=== PATIENT | female | born 1945 | race Caucasian/White ===

== ENCOUNTER → 2018-07-20 | Outpatient (CLI) | payer MEDICARE, BC ==
[~2018-07-20] MED LIST: ACET-1966 PO; ASCO-180 PO; ASPI-1441 PO; ASPI-1471 PO; ATOR20TA22 PO; CALC600T63 PO; CALC600T71 PO; CEPH500C24 PO; CHON400C PO; CIPR-344 PO; ENAL-242 PO; ENAL20TA99 PO; EST3 PO; ESTR0.5T18 PO; ESTR0.62 PO; FISH OIL1 CAP PO; FISH1CAP15 PO; FLAX100027 PO; FLEXATINE PO; FLUO20TA2 PO; FLUT16SP19 NS; GABA-547 PO; GLUC-307 PO; GLUCOSAMINE 1,1 EACH PO; HYDR-2966 PO; HYDR12.561 PO; LEVO150T72 PO; LEVO25TA61 PO; METO25TA23 PO; METXL50 PO; NIA500 PO; OME20PT FT; OMEP-114 PO; PHEN200T32 PO; ROSU20TA23 PO; SIMV-49 PO; SIMV-54 PO; SULF-283 PO; TRIA-102 PO; [UNRECOGNIZED DRUG - CODE] SL
--- NOTE | 2018-07-20 15:25 | RADIOLOGY IMAGING REPORT ---
FACILITY: [facility] - [place] PATIENT NAME: ROSY JOLLEY : [id number] MR: [id number] V: [id number] EXAM DATE: [id number] ORDERING PHYSICIAN: MINA PARRY TECHNOLOGIST: Heather Joshi PROCEDURE:BILATERAL DIGITAL SCREENING MAMMOGRAM WITH CAD ASSISTED INTERPRETATION & 3D TOMOSYNTHESIS COMPARISON:Prior mammograms 07/14/2017. INDICATIONS:SCREENING FINDINGS: Breast tissue is predominantly fatty. There is no suspicious mass, calcification, or architectural distortion. DIAGNOSTIC CATEGORY 1--NEGATIVE. RECOMMENDATIONS: ROUTINE MAMMOGRAM AND CLINICAL EVALUATION. IMPRESSION: BIRADS 1: Negative. No mammographic evidence for malignancy. Dictated by: Fermín Thomas M.D. on 07/20/2018 at 14:51 Transcribed by: ANDREAS on 07/20/2018 at 15:10 Approved by: Fermín Thomas M.D. on 07/20/2018 at 15:22 [facility]
== END ==
LOC: MAMO 00:59
PROVIDERS: ATTEND Internal Medicine
DX: Z12.31 Encounter for screening mammogram for malignant neoplasm of breast (principal)
CPT/HCPCS: 77063; 77067

== ENCOUNTER → 2018-08-16 | Outpatient (CLI) | payer MEDICARE, BC ==
--- NOTE | 2018-08-16 15:23 | RADIOLOGY IMAGING REPORT ---
[place] [facility] [place] NAME: Cristy Clark : 1945 MR: [id number] V: [id number] EXAM DATE: ORDERING PHYSICIAN: MINA PARRY TECHNOLOGIST: Location: [facility] Patient: Cristy Clark : 1945 Visit/Account:[id number] Date of Sevice: 08/16/2018 VENOUS DOPP LOW RIGHT EXTREMIT Right lower extremity swelling. EXAMINATION: Unilateral lower extremity deep vein duplex Doppler ultrasound COMPARISON STUDIES: None FINDINGS: Grayscale compression, duplex and color Doppler interrogation of the RIGHT lower extremity deep vein s from common femoral vein to proximal calf was performed. The greater saphenous vein was evaluated u sing similar technique. Common femoral vein negative Femoral vein negative Deep femoral vein - negative Popliteal vein negative Visualized deep calf veins negative Greater saphenous vein in the proximal thigh negative Popliteal fossa: Complex cystic structure in the medial posterior fossa compatible with a Tao's cys t measuring approximately 4 x 1 cm. IMPRESSION: 1. Negative right leg for DVT. 2. 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 Recommend correl ation and appropriate follow-up. Report Dictated By: Virgil Mcclure MD at 08/16/2018 2:55 PM Report E-Signed By: Virgil Mcclure MD at 08/16/2018 3:19 PM WSN:[email or web address]
== END ==
LOC: RAD 13:36
PROVIDERS: ATTEND Internal Medicine
DX: M71.21 Synovial cyst of popliteal space [Baker], right knee (principal)